=== PATIENT | male | born 1945 | race Caucasian/White ===

== ENCOUNTER 2018-07-11 09:12 | Outpatient (CLI) | payer MEDICARE ==
--- NOTE | 2018-07-11 10:50 | RAD ---
LUMBAR SPINE FOUR VIEWS: 07/11/2018 HISTORY: Fusion surgery of lumbar spine six months ago. FINDINGS: Five lumbar type vertebral bodies are present. Bilateral L4 and L5 pedicle screws are present, with vertically oriented interlocking rods. There is a disk device at the L4-L5 level. The neutral later al imaging demonstrates anterolisthesis of L4 on L5, measuring in the 8 mm range. There is disk spac e narrowing with degenerative endplate change and anterior osteophyte formation at L4-L5 and L5-S1. No evidence for hardware failure or acute fracture. With flexion, anterolisthesis of L4 on L5 increases to approximately 1.1 cm. With extension, the ant erolisthesis of L4 on L5 measures in the 8-9 mm range. IMPRESSION: Postoperative and degenerative change of the lumbar spine, as detailed above. POS: [facility]
== END 2018-07-11 09:13 | disposition home or self-care (01) ==
LOC: BICRAD 09:12
DX: Z98.1 Arthrodesis status (principal); M47.816 Spondylosis without myelopathy or radiculopathy, lumbar region; Z98.890 Other specified postprocedural states
CPT/HCPCS: 72110